=== PATIENT | male | born 1950 | race Caucasian/White ===

== ENCOUNTER 2017-05-12 07:53 | Day surgery (SDC) ==
[2017-05-12] MEDS: TETRACAINE 0.5% UNIT-DOSE OP PRN ×2 (09:13→09:49)
[2017-05-12] MEDS: BETADINE OPTH PREP OP PRN ×2 (09:14→09:49)
[2017-05-12] MEDS: CYCLOGYL 2% OPTH OP PRN ×3 (09:15→09:25)
[2017-05-12] MEDS ORDERED: NIRAVAM ODT (SURGERY) PO PRN (09:22)
[2017-05-12] MEDS ORDERED: DEX-MOXI-KETOR OPTH INJ 1/0.5/0.4 MG/ML IO ONE (09:22)
[2017-05-12] MEDS ORDERED: AK-DILATE 10% OPTH SOL OP PRN (09:22)
[2017-05-12] MEDS ORDERED: ZOFRAN 4 MG/2 ML IVP ONE (09:22)
[2017-05-12] MEDS ORDERED: LIDOCAINE 1% 20 ML MDV ID STA (09:22)
[2017-05-12] MEDS ORDERED: BSS WITH EPINEPHRINE OP ONE (09:22)
[2017-05-12] MEDS ORDERED: BRIMONIDINE TARTRATE 0.2% OPTH SOL OP PRN (09:22)
[2017-05-12] MEDS ORDERED: DIPRIVAN 20 ML VIAL IVP ONE (09:47)
[2017-05-12] MEDS ORDERED: VERSED ONE (09:47)
[2017-05-12] MEDS ORDERED: SUBLIMAZE ONE (09:47)
[2017-05-12] MEDS ORDERED: LIDOCAINE 1%/PHENYLEPHRINE 1.5% BSS (SURGERY) INTRAOCULA ONE (10:04)
[2017-05-12 13:17] VITALS: TEMP 97.3
[2017-05-18 13:20] VITALS: BP 112/67
== END 2017-05-12 11:00 | disposition home or self-care (01) ==
LOC: SURG 07:53
PROVIDERS: ATTEND Ophthalmology
DX: H25.11 Age-related nuclear cataract, right eye (principal)